=== PATIENT | male | born 1985 | race Hispanic/Latino ===

== ENCOUNTER 2022-01-14 08:55 | Emergency (ER) | payer SELFPAY ==
[2022-01-14 09:05] VITALS: BP 138/101
--- NOTE | 2022-01-14 16:50 | Electrocardiograph Report ---
[facility] Test Date: 2022-01-14 Test Time: 08:56:40 Pat Name: HALEY KEE Department: Room: Gender: M [employer] Instructor: TREV : 1985 Requested By: ED DOC Order Number: [id number] Reading MD: Keaton Valdovinos Measurements Intervals Wayne Rate: 86 P: 42 MA: 184 QRS: 3 QRSD: 91 T: 27 QT: 378 QTc: 453 Interpretive Statements Sinus rhythm No previous ECG available for comparison Electronically Signed On 01-14-2022 16:49:51 EDT by Keaton Valdovinos
== END 2022-01-14 10:02 | disposition left against medical advice (07) ==
LOC: ED 08:55
DX: R07.89 Other chest pain (principal); R10.9 Unspecified abdominal pain; Z53.21 Procedure and treatment not carried out due to patient leaving prior to being seen by health care provider
CPT/HCPCS: 93005